=== PATIENT | female | born 1985 | race Caucasian/White ===

== ENCOUNTER → 2023-04-25 | Outpatient (CLI) | payer OTHER ==
--- NOTE | 2023-04-25 12:32 | XR ---
EXAMINATION TYPE: XR knee limited RT DATE OF EXAM: 04/25/2023 12:16 PM INDICATION: Patient age:Female; 37 years old; Reason for study: M25.561; [facility]. COMPARISON: None. TECHNIQUE: The Right knee(s) was examined in frontal and lateral projections. FINDINGS: No evidence of any acute osseous pathology, joint space narrowing, soft tissue swelling, or joint effusion is noted. IMPRESSION: No acute osseous pathology.
--- NOTE | 2023-04-25 12:50 | XR ---
EXAMINATION TYPE: XR ankle complete RT DATE OF EXAM: 04/25/2023 COMPARISON: MRI right ankle 02/14/2013 HISTORY: M25.571 TECHNIQUE: Frontal, lateral and oblique images of the right ankle are obtained. FINDINGS: There is no acute fracture/dislocation evident. The joint spaces appear within normal victoria its. Mild soft tissue swelling at the ankle and foot. Postsurgical changes with orthopedic anchor in the region of the cuboid. IMPRESSION: 1. There is no acute fracture or dislocation seen. 2. Post surgical changes of the foot. 3. Mild soft tissue swelling of the ankle and foot.
== END | disposition home or self-care (01) ==
LOC: RADXRMAIN 11:32
PROVIDERS: ATTEND Family Medicine
DX: M25.571 Pain in right ankle and joints of right foot (principal); M25.561 Pain in right knee; M79.89 Other specified soft tissue disorders